=== PATIENT | female | born 1970 | race African-American/Black ===

== ENCOUNTER 2018-08-18 14:13 | Outpatient (CLI) | payer OTHER ==
--- NOTE | 2018-08-18 15:49 | RAD ---
RIGHT ANKLE THREE VIEWS: HISTORY: Ankle injury. FINDINGS: There appears to be some soft tissue swelling adjacent to the lateral malleolus. There is some subtl e irregularity to the distal fibula, but this is unchanged since the 04/30/2003 study. I do not see any signs of joint effusion or any evidence for fracture. IMPRESSION: NO evidence of fracture. POS: [facility]
== END 2018-08-18 14:14 | disposition home or self-care (01) ==
LOC: BICRAD 14:13
PROVIDERS: ATTEND Family Medicine
DX: M25.571 Pain in right ankle and joints of right foot (principal)

== ENCOUNTER 2019-05-17 15:15 | Outpatient (CLI) | payer BC, OTHER ==
--- NOTE | 2019-05-28 16:08 | MMO ---
Bilateral MAMMO Bilat Screen [facility]. CLINICAL HISTORY: Patient is 49 years old and is seen for screening. The patient has the following family history of breast cancer: cousin female. The patient has no personal history of cancer. VIEWS: The views performed were: bilateral craniocaudal with tomosynthesis and bilateral mediolateral oblique with tomosynthesis. FILMS COMPARED: The present examination has been compared to prior imaging studies performed at 07/30/2016 and 01/12/2017. This study has been interpreted with the assistance of computer-aided detection. MAMMOGRAM FINDINGS: There are scattered fibroglandular densities. There are no suspicious masses, suspicious calcifications, or new areas of architectural distortion. IMPRESSION: THERE IS NO MAMMOGRAPHIC EVIDENCE OF MALIGNANCY. A ROUTINE FOLLOW-UP MAMMOGRAM IN 1 YEAR IS RECOMMENDED. THE RESULTS OF THIS EXAM WERE SENT TO THE PATIENT. ACR BI-RADS Category 1 - Negative MAMMOGRAPHY NOTE: 1. A negative mammogram report should not delay a biopsy if a dominant of clinically suspicious mass is present. 2. Approximately 10% to 15% of breast cancers are not detected by mammography. 3. Adenosis and dense breasts may obscure an underlying neoplasm. Reported by: ROSALIE TODD MD Electonically Signed: [id number]
== END 2019-05-17 15:16 | disposition home or self-care (01) ==
LOC: BICMAMMO 15:15
PROVIDERS: ATTEND Family Medicine
DX: Z12.31 Encounter for screening mammogram for malignant neoplasm of breast (principal); Z80.3 Family history of malignant neoplasm of breast
CPT/HCPCS: 77063; 77067

== ENCOUNTER 2020-02-01 10:12 | Outpatient (CLI) | payer BC ==
--- NOTE | 2020-02-01 11:19 | MRI ---
EXAM: MRI lumbar spine without contrast HISTORY: Back pain with left leg radiculopathy COMPARISON: None TECHNIQUE: Multiple planar multisequence MR images were obtained of the lumbar spine without contrast . FINDINGS: The vertebral bodies and intervertebral discs demonstrate normal height and alignment without fractur e or subluxation. The prevertebral and paraspinal soft tissues are unremarkable. No marrow signal abnormality is present. The conus medullaris terminates normally at T12/L1. T12/L1: No significant posterior bulge or protrusion. No posterior facet arthrosis. No central ashli l stenosis. No neural foraminal stenosis L1/2: No significant posterior bulge or protrusion. No posterior facet arthrosis. No central canal stenosis. No neural foraminal stenosis L2/3: No significant posterior bulge or protrusion. Moderate bilateral posterior facet arthrosis. N o central canal stenosis. Mild bilateral neural foraminal stenosis L3/4: No significant posterior bulge or protrusion. No posterior facet arthrosis. No central canal stenosis. No neural foraminal stenosis L4/5: No significant posterior bulge or protrusion. Moderate bilateral posterior facet arthrosis. N o central canal stenosis. Moderate left and mild right neural foraminal stenosis L5/S1: There is a small 6 mm disc extrusion in the left subarticular region impressing upon the left S1 nerve root. Mild bilateral posterior facet arthrosis. Mild central canal stenosis. Moderate left neural foraminal stenosis IMPRESSION: Degenerative changes of the lumbar spine as above
== END 2020-02-01 10:13 | disposition home or self-care (01) ==
LOC: TBSIIMAG 10:12
PROVIDERS: ATTEND Family Medicine
DX: M54.5 Low back pain (principal); M47.816 Spondylosis without myelopathy or radiculopathy, lumbar region
CPT/HCPCS: 72148

== ENCOUNTER 2021-08-07 15:15 | Outpatient (CLI) | payer BC | END 2021-08-07 15:16 | disposition home or self-care (01) | LOC: BICMAMMO 15:15 | PROVIDERS: ATTEND Family Medicine | DX: N64.4 Mastodynia (principal) | CPT/HCPCS: 77066; G0279 ==

== ENCOUNTER 2021-08-19 14:10 | Emergency (ER) | payer BC, OTHER ==
[2021-08-19] MEDS ORDERED: Ibuprofen 800 MG TAB ONE (14:42)
== END 2021-08-19 15:29 | disposition home or self-care (01) ==
LOC: ERS 14:10
DX: S93.401A Sprain of unspecified ligament of right ankle, initial encounter (principal); I10 Essential (primary) hypertension; Z79.899 Other long term (current) drug therapy; X50.1XXA Overexertion from prolonged static or awkward postures, initial encounter

== ENCOUNTER 2021-11-19 10:17 | Outpatient (CLI) | payer BC | END 2021-11-19 10:18 | disposition home or self-care (01) | LOC: CT 10:17 | PROVIDERS: ATTEND Student in an Organized Health Care Education/Training Program | DX: J30.9 Allergic rhinitis, unspecified (principal); J32.9 Chronic sinusitis, unspecified ==

== ENCOUNTER 2024-01-29 16:07 | Outpatient (CLI) | payer BC | END 2024-01-29 16:08 | disposition home or self-care (01) | LOC: BICMAMMO 16:07 | PROVIDERS: ATTEND Family Medicine | DX: M25.572 Pain in left ankle and joints of left foot (principal); S92.142A Displaced dome fracture of left talus, initial encounter for closed fracture ==

== ENCOUNTER 2024-01-30 11:01 | Emergency (ER) | payer BC | END 2024-01-30 12:20 | disposition home or self-care (01) | LOC: ERS 11:01 | DX: S92.102A Unspecified fracture of left talus, initial encounter for closed fracture (principal); I10 Essential (primary) hypertension; W17.2XXA Fall into hole, initial encounter | CPT/HCPCS: 99282 ==

== ENCOUNTER 2025-02-22 18:17 | Emergency (ER) | payer BC, SELFPAY ==
[2025-02-22 20:57] LABS: #Basophils 0.05 10x3/uL (0.0-0.2); #Eosinophils 0.28 10x3/uL (0.0-0.7); #Monocytes 0.79 10x3/uL (0.11-0.59); #Neutrophils 4.48 10x3/uL (1.40-6.50); %Basophils 0.6 % (0.0-1.0); %Eosinophils 3.5 % (0.0-10.0); %Lymphocytes 29.0 % (21.0-51.0); %Monocytes 10.0 % (0.0-10.0); %Neutrophils 56.6 % (42.0-75.0); Hematocrit 39.4 % (36.0-47.0); Hemoglobin 13.1 g/dL (12.0-16.0); Mean Corpuscular Hemoglobin 29.4 pg (27.0-31.0); Mean Corpuscular Volume 88.5 fL (78.0-98.0); Platelet Count 323 10x3/uL (130-400); Red Blood Cell (RBC) Count 4.45 mill/uL (4.20-5.40); White Blood Cell (WBC) Count 7.92 10x3/uL (4.8-10.8)
[2025-02-22 21:09] LABS: ALT (SGPT) 14 U/L (Less than 34); AST (SGOT) 22 U/L (11-34); Albumin 3.9 g/dL (3.1-4.5); Alkaline Phosphatase 63 U/L (40-110); Anion Gap 15 mmol/L (10-20); BUN (Urea Nitrogen) 10 mg/dL (9.8-20.1); Bilirubin, Total 0.2 mg/dL (0.3-1.2); Calc. Creatinine Clearance 0 mL/min (70-130); Calcium 9.6 mg/dL (7.8-10.44); Carbon Dioxide 26 mmol/L (22-29); Chloride 103 mmol/L (98-107); Globulin 4.0 g/dL (2.4-3.5); Glucose 112 mg/dL (70-105); Potassium 3.6 mmol/L (3.5-5.1); Sodium 140 mmol/L (136-145)
[2025-02-22 21:14] LABS: Troponin I Less than 0.010 ng/mL (< 0.028)
[2025-02-22] MEDS ORDERED: Ketorolac Tromethamine 30 MG (1 mL) VIAL ONE (22:07)
[2025-02-22] MEDS ORDERED: Acetaminophen/Codeine 30-300mg Tablet ONE (22:09)
== END 2025-02-22 23:24 | disposition home or self-care (01) ==
LOC: ERS 18:17
DX: I10 Essential (primary) hypertension (principal); R51.9 Headache, unspecified; Z79.899 Other long term (current) drug therapy
CPT/HCPCS: 70450; 80053; 84484; 85025; 93005; 96374; J1885

== ENCOUNTER 2025-02-25 15:44 | Outpatient (CLI) | payer OTHER | END 2025-02-25 15:45 | disposition home or self-care (01) | LOC: BICRAD 15:44 | PROVIDERS: ATTEND Nurse Practitioner Family | DX: M25.572 Pain in left ankle and joints of left foot (principal) ==